=== PATIENT | male | born 1980 ===

== ENCOUNTER 2016-10-08 02:04 | Emergency (ER) | payer SELFPAY ==
[2016-10-08 02:12] VITALS: BP 132/78
--- NOTE | 2016-10-08 03:02 | ED ---
Head Injury - HPI Summary HPI Summary: Pt here w/ head injury prior to arrival. He does not recall the details of his injury. Reports he's here visiting for reunion weekend and was out earlier today with fellow alumn. Has been drinking ETOH. Does not recall where he was or exactly what happened but believes he walked into a brick wall. Has blood on forehead and wondering if he needs stitches. He is aware that he was found and brought in by EMS but does not know the details leading up to this (ie. if he was alone or with friends? If anyone knows where he is now? Where he was going when this happened?). 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 Denies any pain, MAZARIEGOS, change in vision, vomiting, neck pain, chest pain, ab pain, numbness, tingling, weakness. He is able to ambulate. Imms are UTD. - History Of Current Complaint Chief Complaint: EDLacSutureRecheck Stated Complaint: FALL Time Seen by Provider: 10/08/16 02:20 Hx Obtained From: Patient Pain Intensity: 0 PMH/Surg Hx/FS Hx/Imm Hx Previously Healthy: Yes Endocrine/Hematology History: Denies: Hx Anticoagulant Therapy, Hx Blood Disorders Infectious Disease History: No Infectious Disease History: Denies: Traveled Outside the [place] in Last 30 Days - Social History Occupation: Employed Full-time - [employer] in [place] Alcohol Use: Occasionally Hx Substance Use: No Substance Use Type: Reports: None Hx Tobacco Use: No Smoking Status (MU): Never Smoked Tobacco Review of Systems Eyes: Negative Negative: Photophobia, Blurred Vision, Diplopia Negative: Dental Pain Negative: Chest Pain Negative: Shortness Of Breath Negative: Abdominal Pain, Vomiting, Nausea Positive: no symptoms reported Musculoskeletal: Negative Skin: Other - see HPI Neurological: Other - see HPI Negative: Headache, Weakness, Paresthesia, Numbness Psychological: Normal All Other Systems Reviewed And Are Negative: Yes Physical Exam Triage Information Reviewed: Yes Vital Signs On Initial Exam: Initial Vitals Temp Pulse Resp BP Pulse Ox 98 F 100 18 132/78 95 10/08/16 02:08 10/08/16 02:08 10/08/16 02:08 10/08/16 02:08 10/08/16 02:08 Vital Signs Reviewed: Yes Appearance: Positive: No Pain Distress, Well-Nourished - pt appears intoxicate ( somewhat deliberate speech, coordination is somewhat skewed) Skin: Positive: Warm - dried blood over B/L eyelids and cheeks - abrasion over Rt supraorbital ridge - bleeding controlled; superficial abrasion over dorsum of Lt hand (no bleeding) Head/Face: Positive: Other - NTTP and no gross deformity other than mentioned above; no battlesign, no raccoon eyes Eyes: Positive: Normal, EOMI, GILDARDO, Other: - sclera injected - no signs of hemorrhage ENT: Positive: Pharynx normal - no signs of trauma, TMs normal - no hemoptympanum. Negative: Nasal drainage - no signs of epistaxis Dental: Negative: Dental Fracture @ Neck: Positive: Supple, Nontender Respiratory/Lung Sounds: Positive: Clear to Auscultation, Breath Sounds Present Cardiovascular: Positive: Normal, Pulses are Symmetrical in both Upper and Lower Extremities Abdomen Description: Positive: Nontender, Soft Musculoskeletal: Positive: Normal, Strength/ROM Intact Neurological: Positive: Normal, Sensory/Motor Intact, CN Intact II-III, Other - coordination slightly skewed when asses by finger to nose exam - mild ataxia w/ gait Psychiatric: Positive: Normal - pleasant, calm, cooperative - repeats himself/ asks same question a couple of times Diagnostics - Vital Signs Vital Signs Temp Pulse Resp BP Pulse Ox 10/08/16 02:08 98 F 100 18 132/78 95 - Laboratory Lab Statement: Any lab studies that have been ordered have been reviewed, and results considered in the medical decision making process. Head Injury Course/Dx Course Of Treatment: Pt presents tonight with head injury. He appears intoxicated and with concern for laceration. Wound cannot be closed with sutures d/t nature of skin tear. Bleeding is controlled. He has an underlying hematoma and with limited history recall, assessed brain and face for hemorrhage and fracture respectively. Signed out to Dr. Espinosa at 3:00am. - Diagnoses Provider Diagnoses: Supraorbital ecchymosis, Traumatic hematoma of face, Abrasion of face - Physician Notifications Discussed Care Of Patient With: Dr. Espinosa
--- NOTE | 2016-10-08 04:01 | ED ---
Jack Velasquez Rebecca, scribed for Jaden Espinosa MD on 10/08/16 at 0355 . Progress - Progress Note Progress Note: Pt signed out from JOSE RAUL Soto at 0300 this morning. I palpated the zygomatic, maxillary and orbit bones with no pain elicited. Brain CT: Right supraorbital contusion/hematoma. No acute orbital fracture. No acute intraorbital abnormality. There is no CT evidence of acute territorial infarction. There is no acute intracranial hemorrhage, mass effect or cerebral edema identified. The ventricles are unremarkable. Basilar cisterns are patent. No abnormal intra-axial or extra-axial fluid collection is seen. The bones of the calvarium and imaged skull base demonstrate no acute abnormality. The imaged paranasal sinuses and mastoid air cells are unremarkable. Maxillofacial CT: Right supraorbital contusion/small hematoma. No orbital fracture. No acute intraorbital abnormality. Minimally displaced right maxillary spine fracture (axial image 27). Nasal bones and nasal septum are intact. Minimal to mild paranasal sinus mucosal thickening without airfluid levels or osteitis. Course/Dx - Diagnoses Provider Diagnoses: Supraorbital ecchymosis, Traumatic hematoma of face, Abrasion of face The documentation as recorded by the Jack dobbs Rebecca accurately reflects the service I personally performed and the decisions made by Francisca lane Drew, MD.
--- NOTE | 2016-10-08 08:52 | RAD ---
Indication: RIGHT eyebrow laceration. Head injury. Comparison: No relevant prior exams available on the [facility] PACS for comparison. Technique: Noncontrast CT vertex of skull through foramen magnum. Report: Soft tissue swelling over the RIGHT supraorbital margin and. No loculated soft tissue plane hematoma evident. Unremarkable orbital contents. Negative for skull base or calvarial fracture. Clear visualized paranasal sinuses and mastoid air spaces. The sulci, ventricles, and basal cisterns are normal for age. Walden matter white matter differentiation is preserved without evidence for edema. No intra or extra axial hemorrhage is detected. IMPRESSION: 1. No evidence for traumatic brain injury. 2. Soft tissue swelling over the RIGHT supraorbital margin.
--- NOTE | 2016-10-08 09:01 | RAD ---
INDICATION: Head injury with supraorbital hematoma. COMPARISON: Head CT of the same date. TECHNIQUE: Multidetector CT base of the skull through mandible without contrast. Multiplanar reformation. REPORT: Soft tissue swelling over the RIGHT supraorbital margin limited to the preseptal orbit. Given density of the soft tissue thickening is consistent with infiltrative hematoma. No significant loculated hematoma visualized. Unremarkable post septal orbit. Nondisplaced small osseous fragment at the RIGHT maxillary spine which may represent a normal variant or sequela of remote injury. Correlate with associated point tenderness to favor acute injury. The orbital and maxillary sinus margins, zygomatic arches, lamina papyracea, base of the maxilla, pterygoid plates, and nasal bones are otherwise unremarkable. The mandible is intact. Normal temporal mandibular joint alignment. Mild mucosal thickening in the maxillary sinuses. Negative for paranasal sinus fluid levels. Clear visualized mastoid air spaces. IMPRESSION: 1. Soft tissue swelling/infiltrative hematoma over the RIGHT supraorbital margin. 2. No evidence for postseptal orbital injury or compelling evidence for acute maxillofacial fracture. 3. Nondisplaced small osseous fragment at the RIGHT maxillary spine which may represent a normal variant or sequela of remote injury. Correlate with associated point tenderness to favor acute injury.
== END 2016-10-08 04:01 | disposition home or self-care (01) ==
LOC: ED 02:04
DX: S00.83XA Contusion of other part of head, initial encounter (principal); S00.81XA Abrasion of other part of head, initial encounter; S60.512A Abrasion of left hand, initial encounter; X58.XXXA Exposure to other specified factors, initial encounter; Y93.9 Activity, unspecified; Y92.9 Unspecified place or not applicable; F10.129 Alcohol abuse with intoxication, unspecified
CPT/HCPCS: 70450; 70486; 99282